=== PATIENT | male | born 1945 | race Caucasian/White ===

== ENCOUNTER 2017-01-22 03:21 | Inpatient (IN) | payer MEDICARE, MEDICAID ==
[~2017-01-22] VITALS: Ht 172.7 cm; Wt 102.1 kg
--- NOTE | 2017-01-22 01:51 | NUR ---
RN NOTES RECEIVED PHONE CALL FROM [facility], SPOKE WITH MIRROR INSPECTOR, CAROLYN. REPORT RECEIVED REGARDING PATIENT, LABS AND CT SCAN WAS DONE PER CAROLYN CT SCAN WAS NEGATIVE, TROPONIN NEGATIVE, ASA 81MG WAS GIVEN, CODE STROKE WAS CALLED DUE TO EPISODE OF 5 SECOND LEFT SIDED FACIAL DROOP.CURRENTLY, PT HAS NO FACIAL DROOP. PASSED SWALLOW EVAL. NIHS WAS DONE WITH A SCORE OF 0. ETA 0300.
--- NOTE | 2017-01-22 03:31 | NUR ---
NANOELECTRONICS ENGINEER INITIAL NOTES RECEIVED PATIENT FROM [facility]. PATIENT A/OX4, ABLE TO MAKE NEEDS KNOWN, ABLE TO PROVIDE INFORMATION. STATES HE HAS 5/10 LEFT POSTERIOR HEADACHE, NOT NEW, HAS HAD THE SAME PROBLEM FOR A YEAR. STATES HE'S FEELING BETTER NOW AND HAD TAKEN TYLENOL AT [place]. NO FACIAL DROOPING NOTED. NO DRIFT NOTED TO BOTH ARMS. NO DRIFT NOTED FOR BOTH LEGS. NO ATAXIA. NO DYSARTHRIA NOTED. ABLE TO SWALLOW WATER WITHOUT COUGHING. NO HEMIANOPIA. RELAYED FINDINGS TO SUZY WITH ORDERS FOR CARDIAC DIET. PATIENT DENIES SOB, SPO2 97% ON ROOM AIR. DENIES CHEST PAIN, SINUS RHYTHM 61. SKIN WARM AND DRY TO TOUCH.STATES HE TAKES MEDICATIONS AT HOME BUT DOES NOT KNOW THE EXACT DOSAGE. STATED HE WILL HAVE HIS BRING MEDICATION LIST FROM HOME. SKIN ASSESSMENT DONE. ORIENTED TO ROOM AND CALL LIGHT SYSTEM, PATIENT VERBALIZED UNDERSTANDING. PATIENT VERBALIZED HE WOULD LIKE TO BE FULL CODE. REFUSES PNA VACCINE. SIDE RAILS UP AND LOCKED. BED KEPT AT LOWEST POSITION. CALL LIGHT KEPT WITHIN EASY REACH. WILL CONTINUE TO MONITOR.
[2017-01-22 04:00] VITALS: BP 141/89
[2017-01-22 04:40] LABS: BASOPHILS % (AUTO) 0.3 % (0.0-2.0); EOSINOPHILS # (AUTO) 0.2 /CMM (0.0-0.7); HEMATOCRIT 45 % (39-51); HEMOGLOBIN 14.9 g/dL (13.5-17.5); LYMPHOCYTES # (AUTO) 2.4 /CMM (0.8-4.8); MEAN CORPUSCULAR HEMOGLOBIN 31 PG (26.0-33.0); MEAN CORPUSCULAR HGB CONC 33 g/dl (31.0-36.0); MEAN CORPUSCULAR VOLUME 92 fL (80-96); MONOCYTES # (AUTO) 0.9 /CMM (0.1-1.30); MONOCYTES % (AUTO) 10.6 % (2.0-12.0); NEUTROPHILS # (AUTO) 4.8 /CMM (1.8-8.9); NEUTROPHILS % (AUTO) 58.1 % (43.0-81.0); PLATELET COUNT (AUTO) 253 /CMM (150-450); RDW COEFFICIENT OF VARIATION 13.2 (11.5-15.0); RED BLOOD CELL COUNT(AUTO) 4.91 MIL/uL (4.5-6.0); WHITE BLOOD COUNT (AUTO) 8.3 K/uL (4.3-11.0)
[2017-01-22 05:20] LABS: ALBUMIN 3.5 g/dL (3.4-5.0); BILIRUBIN,TOTAL 0.4 mg/dL (0.2-1.0); CALCIUM, SERUM 9.3 mg/dL (8.5-10.1); POTASSIUM 3.9 mmol/L (3.5-5.1); THYROID STIMULATING HORMONE 3.632 uIU/mL (0.358-3.74); TOTAL PROTEIN, SERUM 7.1 g/dL (6.4-8.2)
[2017-01-22] MEDS ORDERED: BLOOD SUGAR DIAGNOSTIC 1 EACH STRIP IN SCH (06:00)
[2017-01-22 06:02] LABS: PROTHROMBIN TIME 10.7 SECS (9.5-12.7)
[2017-01-22 06:48] LABS: APPEARANCE,URINE CLEAR (CLEAR); BILIRUBIN,URINE NEGATIVE (NEGATIVE); BLOOD, URINE NEGATIVE Ery/uL (NEGATIVE); COLOR,URINE YELLOW (YELLOW); KETONES,URINE NEGATIVE (NEGATIVE); LEUKOCYTE ESTERASE ,URINE NEGATIVE (NEGATIVE); NITRITE, URINE NEGATIVE (NEGATIVE); PROTEIN,URINE NEGATIVE (NEGATIVE); UGLUCOSE NEGATIVE (NEGATIVE); UROBILINOGEN,URINE 0.2 EU/dL (0.2)
[2017-01-22] MEDS: BLOOD SUGAR DIAGNOSTIC 1 EACH STRIP IN SCH ×4 (07:30→21:30)
[2017-01-22 07:38] LABS: CANNABINOID, URINE NEGATIVE (NEGATIVE); PHENCYCLIDINE SCREEN,URINE NEGATIVE (NEGATIVE)
[2017-01-22 08:00] VITALS: BP 115/74
[2017-01-22] MEDS ORDERED: DEXTROSE 50%-WATER 50 ML DISP.SYRIN IV PRN (08:00)
[2017-01-22] MEDS ORDERED: *INSULIN REGULAR(HUMULIN R)HUM 100 UNIT/ML VIAL SQ PRN (08:00)
[2017-01-22] MEDS ORDERED: INSULIN REGULAR, HUMAN 100 UNIT/ML 3 ML VIAL SQ PRN (08:00)
[2017-01-22] MEDS: PANTOPRAZOLE 40 MG TABLET.DR PO SCH (08:29)
[2017-01-22] MEDS: CLOPIDOGREL BISULFATE 75 MG TABLET PO SCH (08:29)
[2017-01-22] MEDS ORDERED: ASPIRIN EC 325 MG TABLET.DR PO SCH (09:00)
--- NOTE | 2017-01-22 11:30 | NUR ---
REPAIRER HELPER NOTE 0720: Received patient awake, A/Ox4. No respiratory distress noted at this time, tolerated room air. With c/o 5/10 headache, offered to get order for pain medication, patient said not at this time, pain is tolerated. Awaiting for neuro consult. NIHSS done, score 0. Neurocheck done. LAC PIV g20 intact. Patient able to ambulate independently. Able to swallow without difficulty. BS WNL. 1130: No any significant changes noted at this time. Pain 4/10 at this time. Patient said son will come about 1pm to give list of meds, patient does not know the doses of his medications.
[2017-01-22 12:00] VITALS: BP 126/81
[2017-01-22] MEDS ORDERED: BLOOD SUGAR DIAGNOSTIC 1 EACH STRIP VI SCH (12:00)
[2017-01-22] MEDS ORDERED: NAPROXEN 500 MG TABLET PO SCH (12:30)
[2017-01-22] MEDS ORDERED: methylPREDNISolone (4MG) 4 MG TABLET (DAY #1, PC LUNCH) PO ONE (12:30)
--- NOTE | 2017-01-22 12:50 | NUR ---
FOR CTA BRAIN/CAROTID NO CONSENT YET PT JUST ATE LUNCH. TO BE DONE 1700 PER KETAN RAWLS
[2017-01-22] MEDS ORDERED: methylPREDNISolone (4MG) 4 MG TABLET (DAY #1 ) PO ONE (13:00)
[2017-01-22] MEDS ORDERED: methylPREDNISolone (4MG) 4 MG TABLET PO ONE (13:00)
--- NOTE | 2017-01-22 13:00 | NUR ---
REINFORCING IRON WORKER HELPER NOTE 1230: S/E by Dr. Botello, with order of CTA brain and neck. Will keep NPO for now per Radiology. 1300: Patient signed consent for the procedure, aware for the procedure, its risks and benefits.
[2017-01-22] MEDS: ATORVASTATIN 40 MG TABLET PO SCH ×2 (13:35→21:30)
[2017-01-22] MEDS ORDERED: ONDANSETRON HCL 4 MG/5 ML SOLUTION PO PRN (14:30)
[2017-01-22] MEDS ORDERED: HYDROCODONE/APAP 5/325MG 1 EACH TABLET PO PRN (14:30)
[2017-01-22] MEDS ORDERED: IOHEXOL-350 100 ML VIAL IV ONE (15:52)
[2017-01-22] MEDS ORDERED: IV NS 0.9% 250 ML IV ONE (15:52)
[2017-01-22] MEDS ORDERED: CT SWABBABLE VALVE TRANS SET 1 EA INFUS.SET MC ONE (15:52)
[2017-01-22 16:00] VITALS: BP 126/79
--- NOTE | 2017-01-22 16:40 | NUR ---
DIESEL DINKEY OPERATOR NOTE Patient back from CTA of brain and neck, patient in good condition. No any significant changes noted. Family at bedside, brought list of meds but no frequency, said he will go back home and will bring the bottles of his meds. Report given to Shefali CROSS RN for [facility]. Pending CTA results.
[2017-01-22] MEDS: NAPROXEN 500 MG TABLET PO SCH (16:57)
[2017-01-22] MEDS ORDERED: methylPREDNISolone (4MG) 4 MG TABLET (DAY #1 PC DINNER) PO ONE (17:30)
[2017-01-22 20:00] VITALS: BP 110/76
[2017-01-22] MEDS ORDERED: methylPREDNISolone (4MG) 4 MG TABLET (DAY1,HS) PO ONE (22:00)
[2017-01-23] VITALS: BP 115/72
[2017-01-23 04:00] VITALS: BP 123/70
[2017-01-23] MEDS: BLOOD SUGAR DIAGNOSTIC 1 EACH STRIP IN SCH ×2 (06:32→11:27)
--- NOTE | 2017-01-23 07:00 | NUR ---
RECEIVED PT IN BED.NO C/O PAIN ,NO S/S OF DISTRESS.BREATHING EVEN AND UNLABORED.A/O X4.I.V SITE CDI AND PATENT.ON TELE MONITORING S.R 78. SAFETY MEASURES IN PLACE ,BED IN LOW AND LOCKED POSITION.WILL CONTINUE TO MONITOR FOR CHANGES.
[2017-01-23] MEDS ORDERED: methylPREDNISolone (4MG) 4 MG TABLET (DAY#2 ACB) PO ONE (07:30)
[2017-01-23 07:35] LABS: EOSINOPHILS % (AUTO) 0.1 % (0.0-6.0); HEMATOCRIT 47 % (39-51); HEMOGLOBIN 15.4 g/dL (13.5-17.5); LYMPHOCYTES # (AUTO) 1.6 /CMM (0.8-4.8); LYMPHOCYTES % (AUTO) 13.2 % (20.0-44.0); MEAN CORPUSCULAR HEMOGLOBIN 30 PG (26.0-33.0); MEAN CORPUSCULAR HGB CONC 33 g/dl (31.0-36.0); MEAN CORPUSCULAR VOLUME 92 fL (80-96); MONOCYTES # (AUTO) 0.8 /CMM (0.1-1.30); MONOCYTES % (AUTO) 6.5 % (2.0-12.0); NEUTROPHILS # (AUTO) 9.5 /CMM (1.8-8.9); NEUTROPHILS % (AUTO) 80.2 % (43.0-81.0); PLATELET COUNT (AUTO) 260 /CMM (150-450); RDW COEFFICIENT OF VARIATION 13.1 (11.5-15.0); RED BLOOD CELL COUNT(AUTO) 5.06 MIL/uL (4.5-6.0); WHITE BLOOD COUNT (AUTO) 11.8 K/uL (4.3-11.0)
[2017-01-23 07:47] LABS: CALCIUM, SERUM 9.4 mg/dL (8.5-10.1); CREATININE 0.9 mg/dL (0.6-1.3); POTASSIUM 4.5 mmol/L (3.5-5.1)
[2017-01-23 07:56] LABS: PROTHROMBIN TIME 10.7 SECS (9.5-12.7)
[2017-01-23 08:00] VITALS: BP 119/88
[2017-01-23] MEDS: NAPROXEN 500 MG TABLET PO SCH (08:29)
[2017-01-23] MEDS: PANTOPRAZOLE 40 MG TABLET.DR PO SCH (08:29)
[2017-01-23] MEDS: CLOPIDOGREL BISULFATE 75 MG TABLET PO SCH (08:29)
--- NOTE | 2017-01-23 11:30 | NUR ---
PT.D/C HOME WITH FAMILY .ALL M.D ORDERS CARRIED OUT.PT TEACHING AND DISCHARGE INSTRUCTIONS PROVIDED TO PATIENT.PT D/C WITH FAMILY
[2017-01-23] MEDS ORDERED: methylPREDNISolone (4MG) 4 MG TABLET (DAY#2,PC LUNCH) PO ONE (12:30)
[2017-01-23] MEDS ORDERED: methylPREDNISolone (4MG) 4 MG TABLET (DAY#2, PC DINNER) PO ONE (17:30)
[2017-01-23] MEDS ORDERED: methylPREDNISolone (4MG) 4 MG TABLET (DAY#2, HS) PO ONE (21:00)
[2017-01-24] MEDS ORDERED: methylPREDNISolone (4MG) 4 MG TABLET (DAY#3,ACB) PO ONE (07:30)
[2017-01-24] MEDS ORDERED: methylPREDNISolone (4MG) 4 MG TABLET (DAY#3,PC LUNCH) PO ONE (12:30)
[2017-01-24] MEDS ORDERED: methylPREDNISolone (4MG) 4 MG TABLET (DAY#3,PC DINNER) PO ONE (17:30)
[2017-01-24] MEDS ORDERED: methylPREDNISolone (4MG) 4 MG TABLET (DAY#3, HS) PO ONE (22:00)
[2017-01-25] MEDS ORDERED: methylPREDNISolone (4MG) 4 MG TABLET (DAY #4, ACB) PO ONE (07:30)
[2017-01-25] MEDS ORDERED: methylPREDNISolone (4MG) 4 MG TABLET (DAY #4, PC LUNCH) PO ONE (12:30)
[2017-01-25] MEDS ORDERED: methylPREDNISolone (4MG) 4 MG TABLET (DAY#4 HS) PO ONE (22:00)
[2017-01-26] MEDS ORDERED: methylPREDNISolone (4MG) 4 MG TABLET (DAY#5, ACB) PO ONE (07:30)
[2017-01-26] MEDS ORDERED: methylPREDNISolone (4MG) 4 MG TABLET (DAY#5,HS) PO ONE (22:00)
[2017-01-27] MEDS ORDERED: methylPREDNISolone (4MG) 4 MG TABLET (DAY#6,ACB) PO ONE (07:30)
== END 2017-01-23 12:15 | disposition home or self-care (01) | DRG 69 ==
LOC: TELE1 03:21
PROVIDERS: ADMIT Nurse Practitioner Acute Care; ATTEND Family Medicine
DX: G45.9 Transient cerebral ischemic attack, unspecified (principal); N40.0 Benign prostatic hyperplasia without lower urinary tract symptoms; I10 Essential (primary) hypertension; F41.9 Anxiety disorder, unspecified; F32.9 Major depressive disorder, single episode, unspecified; E66.9 Obesity, unspecified; E78.5 Hyperlipidemia, unspecified; Z68.34 Body mass index [BMI] 34.0-34.9, adult
CPT/HCPCS: 36415; 70496-TC; 70498-TC; 80048-TC; 80053-TC; 80061-TC; 80305; 81000-TC; 82962-TC; 83880; 84443-TC; 85025-TC; 85652-TC; 85730-TC; 87081-TC; 93307-TC; 97001-TC; J1815; J7050; J7509; Q9967